=== PATIENT | female | born 1940 | race Caucasian/White ===

== ENCOUNTER 2016-07-31 06:19 | Day surgery (SDC) | payer OTHER ==
[~2016-07-31] VITALS: Ht 170.2 cm; Wt 71.1 kg
--- NOTE | ~2016-07-31 | O ---
[facility] [place] [address] OPERATIVE REPORT Name: ERICPAOLA Sujit Room #: DEP [facility].#: [id number] Admission: 07/31/16 Attend Phys: Adi Cowart MD Discharge: 07/31/16 Date of : 42 Report #: [id number] THIS REPORT FOR: //name// CC: MICHAEL Cordova MD [place] Cowart DATE OF SERVICE: 07/31/2016 PREOPERATIVE DIAGNOSIS: Tumor of left upper lid. POSTOPERATIVE DIAGNOSIS: Tumor of left upper lid, basal cell carcinoma. PROCEDURE: Excision of basal cell carcinoma of the left upper lid with frozen section control of margins, vascularized tarsoconjunctival flap correction of posterior lamellar defect, musculocutaneous flap correction of anterior lamellar left upper lid defect. SURGEON: Adi Cowart M.D. REEL SLITTER: None. ANESTHESIA: General. COMPLICATIONS: None. INDICATIONS FOR SURGERY: This pleasant 75-year-old woman has a large left upper lid ulcerated nodular mass that appears to be a neglected basal cell carcinoma. She presents today for excision of that tumor with frozen sections and subsequent reconstruction of the ensuing defect. An informed consent was obtained to include but not limited to the potential risk for loss of vision, bleeding, infection, failure to improve the problem, the potential need for further surgery or treatment. DESCRIPTION OF PROCEDURE: The patient was taken to the operating room where general anesthesia was administered. The left upper lid, the left lateral canthus, the left brow, and the left infratemporal fossa were anesthetized with Xylocaine with epinephrine mixed with Marcaine and Wydase. The patient was subsequently prepped and draped in the usual sterile fashion. A fine tip skin marking pen was then utilized to outline the tumor including, 1-2 mm of normal appearing tissue. The incisions were then made perpendicularly across the left upper lid margin and drawn subsequently horizontally across the lid, removing a roughly rectangular shaped piece of tissue. The specimen was oriented on a drawing for the waiting pathologist. Discussion was undertaken about how best to hemisect this specimen to allow all of the margins to be inspected, as there [address] [address] OPERATIVE REPORT Name: PAOLA REYES Room #: DEP [facility] M.R.#: [id number] Admission: 07/31/16 Attend Phys: Adi Cowart MD Discharge: 07/31/16 Date of : 42 Report #: [id number] are 3 sites of importance. Hemostasis was achieved in the field as the pathologist snap froze that specimen for it. He analyzed the tissue and found that, the lesion was indeed a basal cell carcinoma, and he felt that all of all margins were clear. Attention was then directed towards, repair of the subsequent defect. A vascularized tarsoconjunctival advancement flap was then developed in the left upper lid. Incisions were then made perpendicularly across the medial and lateral portion of the wound, directed superiorly up into the anterior orbit. The Toribio's muscle on that tissue was then dissected free from the underlying conjunctivae. The vascularized tarsoconjunctival flap was then drawn down into its new position. It was secured medially and laterally with interrupted 6-0 Vicryl sutures. It was shortened horizontally to make the lid tight. A musculocutaneous flap was then outlined laterally, and relaxing incision subsequently made to allow flap to be used to correct the anterior lamellar defect in the left upper lid. Hemostasis was then re-achieved. The flap was then advanced and subsequently closed with interrupted, buried Vicryl sutures deep and 7-0 Vicryl sutures and 6-0 plain gut sutures more superficially. The wounds were then cleaned and dressed with erythromycin ophthalmic ointment, and the patient subsequently transported to the recovery area having tolerated the procedure well, with no anesthetic or operative complications being noted. Thank you very much. Supportive dictations follow. By: [id number] Adi Cowart MD /nt
--- NOTE | ~2016-07-31 | S ---
[facility] [place] [address] [place] [address] SURGICAL PATH RPT PROCEDURE Name: PAOLA REYES Room #: DEP [facility]..#: [id number] Admission: 07/31/16 Date of : 42 Discharge: 07/31/16 Report #: [id number] Path Case #: [id number] PATHOLOGY REPORT COLLECTION DATE: 07/31/2016 RECEIVED DATE: 08/01/2016 SUBMITTING PHYS: Dr. Adi Cowart OTHER PHYS: Dr. Juan Luis Grove SPECIMEN(S) RECEIVED: A.Tumor left upper eyelid * * * * * * * * * * * * FINAL DIAGNOSIS: Skin tumor, left upper eyelid, excision: - BASAL CELL CARCINOMA. - Margins of excision negative. (SKM:travis; d/t: 08/02/2016) PATHOLOGIST: Michel Ellis M.D. REPORT ELECTRONICALLY SIGNED BY: Michel Ellis M.D. DATE/TIME: 08/02/2016 16:12 * * * * * * * * * * * * GROSS PATHOLOGY: The specimen is received fresh and it is labeled, "left upper eyelid", and it consists of a roughly elliptical pink-dowd piece of skin which measures 1.4 x 0.5 x 0.6 cm. The specimen is received on a piece of cardboard and orientation is placed on the cardboard. The margins of interest are the medial, lateral, and superior. The inferior edge of the specimen contains eyelashes and is not a true margin. The specimen is inked as follows: Inferior edge -black Superior margin-blue Medial tip margin-red Lateral tip margin-yellow. The specimen is serially sectioned and all frozen on one suzanna. (SKM:eliza; d/t: 08/02/2016) FROZEN SECTION DIAGNOSIS: (Javier Ellis M.D.) Left upper eyelid: - BASAL CELL CARCINOMA. MARGINS NEGATIVE. Findings relayed to Dr. Cowart at the time of the procedure. [facility] [address] [place] [address] [place] [address] [place] [address] SURGICAL PATH RPT PROCEDURE Name: PAOLA REYES Room #: [facility]..#: [id number] Admission: 07/31/16 Date of : 42 Discharge: 07/31/16 Report #: [id number] Path Case #: [id number] CLINICAL HISTORY: BCCA left upper lid INITIAL CPT CODE(S): A; 31953, 54546 Professional services performed by [facility] at [facility] [address] [place] [address] Technical [facility] performed by [facility] at [address] [place] [address], [facility] [address] [address]. [facility] [place] [address] PHONE: [phone] DIRECTOR: Fidencio White M.D. * * * END OF REPORT * * *
[~2016-07-31 06:19] MED LIST: ALLOPURINOL 30300 M2 PO; ARICEPT 5 MG TAB5 MG PO; ASPIR 8181 MG PO; ATIVAN0.5 MG PO; BACTROBAN CREAM30 G2 TOP; DOC-Q-LACE100 MG PO; DOXEPIN 50MG CA50 M1 PO; LEVOTHYROXIN0.025 MG PO; LEXAPRO20 MG PO; NAMENDA 10 MG T10 MG PO; PRILOSEC 20 MG20 MG PO; TRIAMCINOLONE A80 G2 TOP; VITAMIN D35000 UNIT PO
[2016-07-31 13:20] VITALS: BP 119/74
== END 2016-07-31 15:20 | disposition home or self-care (01) ==
LOC: TBA 06:19 → OR 06:19
DX: C44.119 Basal cell carcinoma of skin of left eyelid, including canthus (principal); E03.9 Hypothyroidism, unspecified; K21.9 Gastro-esophageal reflux disease without esophagitis; G30.9 Alzheimer's disease, unspecified; F02.80 Dementia in other diseases classified elsewhere, unspecified severity, without behavioral disturbance, psychotic disturbance, mood disturbance, and anxiety; M10.9 Gout, unspecified; Z85.21 Personal history of malignant neoplasm of larynx
CPT/HCPCS: 50010; 50101; 50398; 51636; 56528; 56531; 62110; 62900; 70005